=== PATIENT | female | born 1995 | race Caucasian/White ===

== ENCOUNTER 2018-11-13 19:02 | Emergency (ER) | payer OTHER, BC ==
--- NOTE | 2018-11-13 19:25 | EDM.PDOC ---
ED HPI GENERAL MEDICAL PROBLEM - General Chief Complaint: Laceration Stated Complaint: RIGHT THUMB LACERATION Time Seen by Provider: 11/13/18 19:23 Source of Information: Reports: Patient, Family (spouse) History Limitations: Reports: No Limitations - History of Present Illness INITIAL COMMENTS - FREE TEXT/NARRATIVE: 23-year-old female presents to the ED with a superficial laceration to the volar aspect of her right thumb. This occurred at home. When her 's duty knife. He uses just open bags of foreign material which could contain methamphetamines, cocaine etc. Therefore concerned about potential emanation of the wound with foreign substance. However the wound is very superficial. Not actively bleeding at present.She is 37 weeks gestation. Tetanus diphtheria and pertussis toxoid is been recently updated. 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 (see below) (None.) - Related Data Allergies Allergy/AdvReac Type Severity Reaction Status Date / Time No Known Allergies Allergy Verified 11/13/18 19:19 Home Meds: Home Meds Pnv No.122/Iron/Folic Acid [ Multi Tablet] 1 tab PO DAILY 11/13/18 [ History] Past Medical History - Past Surgical History HEENT Surgical History: Reports: Tonsillectomy Social & Family History - Tobacco Use Smoking Status *Q: Never Smoker - Caffeine Use Caffeine Use: Reports: None - Recreational Drug Use Recreational Drug Use: No - Living Situation & Occupation Living situation: Reports: Occupation: Employed ED ROS GENERAL - Review of Systems Review Of Systems: See Below Constitutional: Reports: Fatigue. Denies: Fever, Chills, Malaise, Weakness HEENT: Reports: No Symptoms Respiratory: Reports: Shortness of Breath (due to late third term ) Cardiovascular: Reports: No Symptoms Endocrine: Reports: Fatigue GI/Abdominal: Reports: No Symptoms : Reports: No Symptoms Musculoskeletal: Reports: No Symptoms Skin: Reports: Other (laceration distal volar Rt thumb.) Neurological: Reports: No Symptoms Psychiatric: Reports: No Symptoms Hematologic/Lymphatic: Reports: No Symptoms Immunologic: Reports: No Symptoms ED EXAM, SKIN/RASH Exam: See Below General Appearance: Alert, WD/WN, No Apparent Distress Extremities: Other (Examination was limited to her right volar distal thumb. She has a 3 mm superficial laceration to the area. It is not actively bleeding. Due to concerns of being potentially contaminated with drugs. The wound was irrigated thoroughly under Water.) Neurological: Alert, Oriented, CN II-XII Intact, Normal Cognition Course - Vital Signs Last Recorded V/S: Last Vital Signs Temp 36.6 C 11/13/18 19:17 Pulse 117 H 11/13/18 19:17 Resp 16 11/13/18 19:17 BP 149/87 H 11/13/18 19:17 Pulse Ox 97 11/13/18 19:17 - Radiology Interpretation Free Text/Narrative:: 23-year-old female presents to the ED with a superficial laceration to the distal volar aspect of her right thumb. The wound is only about 3 mm in length. Is not actively bleeding. The wound occurred from her 's duty knife. 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 She uses the next open up for neurologic's and particularly bags of dental drugs such as methamphetamines and cocaine. Concern was therefore whether or not she could've got across contaminated with a foreign substance. However my examination the wound is very superficial unlikely that any's systemic symptoms can occ from the superficiality of the laceration. Plan wound irrigation. Then topical antibiotic and a Band-Aid. Departure - Departure Time of Disposition: 19:23 Disposition: Home, Self-Care 01 Condition: Fair Clinical Impression: Laceration of thumb Qualifiers: Encounter type: initial encounter Damage to nail status: without damage Foreign body presence: without foreign body Laterality: right Qualified Code(s) : S61.011A - Laceration without foreign body of right thumb without damage to nail, initial encounter - Discharge Information *PRESCRIPTION DRUG MONITORING PROGRAM REVIEWED*: Not Applicable *COPY OF PRESCRIPTION DRUG MONITORING REPORT IN PATIENT DEVANTE: Not Applicable Referrals: Yelitza Salter PA-C [Primary Care Provider] - Forms: ED Department Discharge Additional Instructions: Evaluation in the emergency him today in regards to a superficial laceration to be 3 mm in length volar aspect of the right thumb that occurred knife potentially contaminated with drugs. On examination her wound is very superficial and not actively bleeding and therefore it is very unlikely that anything would penetrated into the systemic system. Was irrigated and cleansed thoroughly. And now is topical antibiotic such as bacitracin or Polysporin once daily and a bandage to keep clean until it heals. Tetanus toxoid is up-to-date. Return to medical care IF signs of infection develop such as increased redness, swelling or obvious pus.
== END 2018-11-13 19:37 | disposition home or self-care (01) ==
LOC: JD.ED 19:02
DX: O9A.213 Injury, poisoning and certain other consequences of external causes complicating pregnancy, third trimester (principal); S61.011A Laceration without foreign body of right thumb without damage to nail, initial encounter; Z3A.37 37 weeks gestation of pregnancy; W26.0XXA Contact with knife, initial encounter
CPT/HCPCS: 99282; 99283

== ENCOUNTER 2018-11-17 16:57 | Inpatient (IN) | payer OTHER, BC ==
[2018-11-17] MEDS ORDERED: Ondansetron 4 MG/2 ML SDV IVPUSH PRN (17:24)
[2018-11-17] MEDS ORDERED: Sodium Chloride 0.9% 10 ML Syringe FLUSH PRN (17:24)
[2018-11-17] MEDS ORDERED: Nalbuphine 20 MG/ML 1 ML Syringe IVPUSH PRN (17:24)
[2018-11-17] MEDS ORDERED: Misoprostol 100 MCG Tab VAG PRN (17:24)
--- NOTE | 2018-11-17 17:29 | PCM.LDHP ---
L&D History of Present Illness - General Date of Service: 11/17/18 Admit Problem/Dx: Patient Status Order with Admit Dx/Problem 11/17/18 17:25 Patient Status [ADT] Routine Admission Diagnosis/Problem Admission Diagnosis/Problem Cholestasis Source of Information: Patient History Limitations: Reports: No Limitations - History of Present Illness Introduction:: Patient is a 23 y/o at 37 0/7 wks who presents for IOL for cholestasis of . Has had this complicated by findings of echogenic bowel on US (now resolved). Normal MFM evaluation including amniocentesis. Recently in had complained of solar pruritis. Bile acids drawn at 35 3/7 wks were < 1, but given persistence of patient symptoms were repeated at 36 3/7 wks and just today returned at 5. Given increase and symptoms diagnosis made. She is otherwise doing well. 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: Reports: Polycystic Ovaries : 1 Para: 0 LMP (Approximate): - Past Surgical History HEENT Surgical History: Reports: Tonsillectomy Dermatological Surgical History: Reports: Other (See Below) (cyst excision) Social & Family History - Tobacco Use Smoking Status *Q: Never Smoker - Caffeine Use Caffeine Use: Reports: None - Alcohol Use Alcohol Use History: No - Recreational Drug Use Recreational Drug Use: No - Living Situation & Occupation Living situation: Reports: Occupation: Employed H&P Review of Systems - Review of Systems: Review Of Systems: See Below General: Reports: No Symptoms Pulmonary: Reports: No Symptoms Cardiovascular: Reports: No Symptoms Gastrointestinal: Reports: No Symptoms Genitourinary: Reports: No Symptoms Musculoskeletal: Reports: No Symptoms Skin: Reports: Pruritis (solar and arms) Neurological: Reports: No Symptoms L&D Exam - Exam Exam: See Below - Vital Signs Weight: 108.125 kg - OB Specific Contraction Intensity: Irritability Movement: Active Heart Tones: Present Heart Tones per Min: 145 Heart Rate (FHR) Variability: Moderate (6-25 bmp) Presentation: Vertex - Hammond Score Hammond Score Cervix Position: Posterior Hammond Score Consistency: Medium Hammond Score Effacement: 0-30% Hammond Score Dilation: 1-2 cm Hammond Score Infant's Station: -3 Hammond Score Total: 2 - Exam General: Alert, Oriented, Cooperative Lungs: Clear to Auscultation, Normal Respiratory Effort Cardiovascular: Regular Rate, Regular Rhythm GI/Abdominal Exam: Soft, Non-Tender Genitourinary: Normal external exam Extremities: Normal Inspection Skin: Warm, Dry, Intact - Patient Data Result Diagrams: 11/17/18 17:45 11/17/18 17:45 - Problem List (1) 37 weeks gestation of SNOMED Code(s): 40773020 ICD Code: Z3A.37 - 37 WEEKS GESTATION OF Status: Acute Current Visit: Yes (2) Cholestasis during in third trimester SNOMED Code(s): 036074689 ICD Code: O26.613 - LIVER AND BILIARY TRACT DISORD IN , THIRD TRIMESTER; K83.1 - OBSTRUCTION OF BILE DUCT Status: Acute Current Visit: Yes Problem List Initiated/Reviewed/Updated: Yes Orders Last 24hrs: Active Orders 24 hr Category Date Time Status Patient Status [ADT] Routine ADT 11/17/18 17:25 Ordered Activity as Tolerated [RC] PFP Care 11/17/18 17:25 Ordered Communication Order [RC] ASDIRECTED Care 11/17/18 17:25 Ordered Communication Order [RC] ASDIRECTED Care 11/17/18 17:25 Ordered Communication Order [RC] ASDIRECTED Care 11/17/18 17:25 Ordered Communication Order [RC] ASDIRECTED Care 11/17/18 17:25 Ordered Heart Tones [RC] ASDIRECTED Care 11/17/18 17:25 Ordered Monitoring [RC] INTERMITTENT Care 11/17/18 17:25 Ordered Non Stress Test [RC] PER UNIT ROUTINE Care 11/17/18 17:25 Ordered Notify Provider [RC] ASDIRECTED Care 11/17/18 17:25 Ordered Notify Provider [RC] PRN Care 11/17/18 17:25 Ordered Peripheral IV Care [RC] . DIRECTED Care 11/17/18 17:25 Ordered Vaginal Exam [RC] ASDIRECTED Care 11/17/18 17:25 Ordered Vital Signs [RC] ASDIRECTED Care 11/17/18 17:25 Ordered Vital Signs [RC] PER UNIT ROUTINE Care 11/17/18 17:25 Ordered Regular Diet [DIET] Diet 11/17/18 Dinner Ordered CBC W/O DIFF,HEMOGRAM [HEME] Routine Lab 11/17/18 17:27 Ordered COMPREHENSIVE METABOLIC PN,CMP [CHEM] Routine Lab 11/17/18 17:24 Ordered RAPID PLASMA REAGIN,RPR [CHEM] Routine Lab 11/17/18 17:25 Ordered TYPE AND SCREEN [BBK] Routine Lab 11/17/18 17:24 Ordered Lactated Ringers [Ringers, Lactated] 1,000 ml Med 11/17/18 17:30 Ordered IV ASDIRECTED Nalbuphine [Nubain] Med 11/17/18 17:24 Ordered 10 mg IVPUSH Q2H PRN Ondansetron [Zofran] Med 11/17/18 17:24 Ordered 4 mg IVPUSH Q4H PRN Oxytocin/Lactated Ringers [Pitocin in LR 10 Units/1,000 Med 11/17/18 17:30 Ordered ML] 10 unit in 1,000 ml IV .CONTINUOUS Oxytocin/Lactated Ringers [Pitocin in LR 10 Units/1,000 Med 11/17/18 17:30 Ordered ML] 10 unit in 1,000 ml IV TITRATE Sodium Chloride 0.9% [Saline Flush] Med 11/17/18 17:24 Ordered 10 ml FLUSH ASDIRECTED PRN miSOPROStol [Cytotec] Med 11/17/18 17:24 Ordered 25 mcg VAG Q4H PRN Electronic Heart Tones Ext w TOCO [WOMSER] Oth 11/17/18 17:25 Ordered Routine Electronic Heart Tones Internal [WOMSER] Per Unit Oth 11/17/18 17:25 Ordered Routine Peripheral IV Insertion Adult [OM.PC] Routine Oth 11/17/18 17:25 Ordered Medication Orders Lactated Ringer's (Ringers, Lactated) 1,000 mls @ 40 mls/hr IV ASDIRECTED SHARMILA Oxytocin/Lactated Ringer's (Pitocin In Lr 10 Units/1,000 Ml) 10 unit in 1,000 mls @ 12 mls/hr IV TITRATE SHARMILA; Protocol Oxytocin/Lactated Ringer's (Pitocin In Lr 10 Units/1,000 Ml) 10 unit in 1,000 mls @ 500 mls/hr IV .CONTINUOUS SHARMILA Misoprostol (Cytotec) 25 mcg VAG Q4H PRN PRN Reason: cervical ripening Nalbuphine HCl (Nubain) 10 mg IVPUSH Q2H PRN PRN Reason: pain Ondansetron HCl (Zofran) 4 mg IVPUSH Q4H PRN PRN Reason: Nausea/Vomiting Sodium Chloride (Saline Flush) 10 ml FLUSH ASDIRECTED PRN PRN Reason: Keep Vein Open Assessment/Plan Comment:: 23 y/o at 37 0/7 wks who presents of IOL for cholestasis of * labs * Cytotec for IOL. Will try to add in Vick bulb when able. Pitocin/AROM when able * GBS negative, no need for antibiotics * Pain management per patient preference * Anticipate
[2018-11-17] MEDS ORDERED: Oxytocin/Lactated Ringers 10 UNIT/1,000 ML BAG IV SCH ×2 (17:30)
[2018-11-17] MEDS ORDERED: Misoprostol 25 MCG (1/4 of 100 MCG) Tab ONE (17:48)
[2018-11-17] MEDS: Misoprostol 25 MCG (1/4 of 100 MCG) Tab VAG PRN (22:16)
[2018-11-18] MEDS: Misoprostol 25 MCG (1/4 of 100 MCG) Tab VAG PRN (02:12)
--- NOTE | 2018-11-18 06:59 | PCM.PNLD ---
Labor Progress Note - VS & Meds Vital Signs: Last Vital Signs Temp 36.3 C 11/17/18 17:25 Pulse 126 H 11/17/18 17:25 Resp 18 11/17/18 17:25 BP 134/82 11/17/18 17:25 Pulse Ox Active Medications: Current Medications Lactated Ringer's (Ringers, Lactated) 1,000 mls @ 40 mls/hr IV ASDIRECTED SHARMILA Oxytocin/Lactated Ringer's (Pitocin In Lr 10 Units/1,000 Ml) 10 unit in 1,000 mls @ 12 mls/hr IV TITRATE SHARMILA; Protocol Oxytocin/Lactated Ringer's (Pitocin In Lr 10 Units/1,000 Ml) 10 unit in 1,000 mls @ 500 mls/hr IV .CONTINUOUS SHARMILA Nalbuphine HCl (Nubain) 10 mg IVPUSH Q2H PRN PRN Reason: pain Ondansetron HCl (Zofran) 4 mg IVPUSH Q4H PRN PRN Reason: Nausea/Vomiting Sodium Chloride (Saline Flush) 10 ml FLUSH ASDIRECTED PRN PRN Reason: Keep Vein Open Discontinued Medications Misoprostol (Cytotec) 25 mcg VAG Q4H PRN PRN Reason: cervical ripening Last Admin: 11/17/18 17:50 Dose: 25 mcg Misoprostol (Cytotec) Confirm Administered Dose 25 mcg .ROUTE .STK-MED ONE Stop: 11/17/18 17:49 Last Admin: 11/18/18 00:59 Dose: Not Given Misoprostol (Cytotec) 25 mcg VAG Q4H PRN PRN Reason: cervical ripening Last Admin: 11/18/18 02:12 Dose: 25 mcg - Uterine Contractions Uterine Monitoring Mode: External Strang Contraction Intensity: Mild Uterine Resting Tone: Soft - Monitoring Monitor Mode: External Ultrasound Heart Rate (FHR) Baseline: 135 Heart Rate (FHR) Variability: Moderate (6-25 bmp) Accelerations: Present, 15x15 Decelerations: None Strip Review: Category I - Vaginal Exam Dilation (cm): 0.5-1 Effacement (Percent): 25 Station: -2 Cervical Position: Midposition - Labor Progress (Free Text) Labor Progress: Patient s/p 3 doses of cytotec overnight. Feeling some mild cramping with this. Vick bulb placed. Will start pitocin at this time.
[2018-11-18] MEDS: Lactated Ringers 1,000 ML IV SCH ×6 (07:32→22:00)
[2018-11-18] MEDS ORDERED: ePHEDrine 50 MG/ML SDV IVPUSH PRN (13:29)
[2018-11-18] MEDS ORDERED: diphenhydrAMINE 50 MG/ML SDV IVPUSH PRN (13:29)
[2018-11-18] MEDS ORDERED: fentaNYL 100 MCG/2 ML SDV EPIDUR PRN (13:29)
--- NOTE | 2018-11-18 13:33 | PCM.PREANE ---
Preanesthetic Assessment - Procedure Proposed Procedure: asa - Anesthesia/Transfusion/Family Hx Anesthesia History: Prior Anesthesia Without Reaction Family History of Anesthesia Reaction: No Transfusion History: No Prior Transfusion(s) - Review of Systems General: No Symptoms Pulmonary: No Symptoms Cardiovascular: No Symptoms Gastrointestinal: No Symptoms Neurological: No Symptoms Other: Reports: None - Physical Assessment Respiratory Rate: 18 Vital Signs: Last Vital Signs Temp 97.4 F 11/17/18 17:25 Pulse 126 H 11/17/18 17:25 Resp 18 11/17/18 17:25 BP 134/82 11/17/18 17:25 Pulse Ox Height: 5 ft 7 in Weight: 108.125 kg ASA Class: 2 Mental Status: Alert & Oriented x3 Airway Class: Mallampati = 1 Dentition: Reports: Normal Dentition Thyro-Mental Finger Breadths: 3 Mouth Opening Finger Breadths: 3 ROM/Head Extension: Full Lungs: Clear to Auscultation, Normal Respiratory Effort Cardiovascular: Regular Rate, Regular Rhythm - Lab Values: Laboratory Last Values WBC 15.64 K/mm3 (3.98-10.04) H 11/17/18 17:45 RBC 4.19 M/mm3 (3.98-5.22) 11/17/18 17:45 Hgb 12.2 gm/L (11.2-15.7) 11/17/18 17:45 Hct 37.3 % (34.1-44.9) 11/17/18 17:45 MCV 89.0 fl (79.4-94.8) 11/17/18 17:45 MCH 29.1 pg (25.6-32.2) 11/17/18 17:45 MCHC 32.7 g/dl (32.2-35.5) 11/17/18 17:45 RDW Std Deviation 44.2 fL (36.4-46.3) 11/17/18 17:45 Plt Count 224 K/mm3 (182-369) 11/17/18 17:45 MPV 10.7 fl (9.4-12.3) 11/17/18 17:45 Sodium 139 mEq/L (136-145) 11/17/18 17:45 Potassium 3.4 mEq/L (3.5-5.1) L 11/17/18 17:45 Chloride 105 mEq/L (98-107) 11/17/18 17:45 Carbon Dioxide 20 mEq/L (21-32) L 11/17/18 17:45 Anion Gap 17.4 (5-15) H 11/17/18 17:45 BUN 8 mg/dL (7-18) 11/17/18 17:45 Creatinine 0.7 mg/dL (0.55-1.02) 11/17/18 17:45 Est Cr Clr Drug Dosing 119.47 mL/min 11/17/18 17:45 Estimated GFR (MDRD) > 60 mL/min (>60) 11/17/18 17:45 BUN/Creatinine Ratio 11.4 (14-18) L 11/17/18 17:45 Glucose 151 mg/dL (74-106) H 11/17/18 17:45 Calcium 9.2 mg/dL (8.5-10.1) 11/17/18 17:45 Total Bilirubin 0.3 mg/dL (0.2-1.0) 11/17/18 17:45 AST 20 U/L (15-37) 11/17/18 17:45 ALT 13 U/L (14-59) L 11/17/18 17:45 Alkaline Phosphatase 137 U/L (46-116) H 11/17/18 17:45 Total Protein 6.2 g/dl (6.4-8.2) L 11/17/18 17:45 Albumin 2.6 g/dl (3.4-5.0) L 11/17/18 17:45 Globulin 3.6 gm/dL 11/17/18 17:45 Albumin/Globulin Ratio 0.7 (1-2) L 11/17/18 17:45 RPR Non-reactive (NONREACTIVE) 11/17/18 17:25 Blood Type A POSITIVE 11/17/18 17:45 Gel Antibody Screen Negative 11/17/18 17:45 - Allergies Allergies/Adverse Reactions: Allergies Allergy/AdvReac Type Severity Reaction Status Date / Time No Known Allergies Allergy Verified 11/13/18 19:19 - Acknowledgements Anesthesia Type Planned: Epidural Pt an Appropriate Candidate for the Planned Anesthesia: Yes Alternatives and Risks of Anesthesia Discussed w Pt/Guardian: Yes Pt/Guardian Understands and Agrees with Anesthesia Plan: Yes PreAnesthesia Questionnaire Cardiovascular History: Reports: None Respiratory History: Reports: None Gastrointestinal History: Reports: Other (See Below) Other Gastrointestinal History: cholestasis 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: Polycystic Ovaries : 1 (37 weeks) Para: 0 Oncologic (Cancer) History: Reports: None - Past Surgical History HEENT Surgical History: Reports: Tonsillectomy Dermatological Surgical History: Reports: Other (See Below) (cyst excision) - SUBSTANCE USE Smoking Status *Q: Never Smoker Tobacco Use Within Last Twelve Months: No Second Hand Smoke Exposure: No Days Per Week of Alcohol Use: 0 Recreational Drug Use History: No - HOME MEDS Home Medications: Home Meds Pnv No.122/Iron/Folic Acid [ Multi Tablet] 1 tab PO DAILY 11/13/18 [ History] - CURRENT (IN HOUSE) MEDS Current Meds: Current Medications Diphenhydramine HCl (Benadryl) 25 mg IVPUSH Q6H PRN PRN Reason: pruritis Ephedrine Sulfate (Ephedrine Sulfate) 5 mg IVPUSH ASDIRECTED PRN PRN Reason: Hypotension Fentanyl (Sublimaze) 100 mcg EPIDUR Q3H PRN PRN Reason: Pain Fentanyl/Bupivacaine HCl (Fentanyl/Bupivacaine/Ns 2 Mcg-0.125% 100 Ml) 100 ml EPIDUR ASDIRECTED SHARMILA Lactated Ringer's (Ringers, Lactated) 1,000 mls @ 40 mls/hr IV ASDIRECTED SHARMILA Last Admin: 11/18/18 07:32 Dose: 40 mls/hr Oxytocin/Lactated Ringer's (Pitocin In Lr 10 Units/1,000 Ml) 10 unit in 1,000 mls @ 12 mls/hr IV TITRATE SHARMILA; Protocol Last Titration: 11/18/18 10:20 Dose: 12 munits/min, 72 mls/hr Oxytocin/Lactated Ringer's (Pitocin In Lr 10 Units/1,000 Ml) 10 unit in 1,000 mls @ 500 mls/hr IV .CONTINUOUS SHARMILA Nalbuphine HCl (Nubain) 10 mg IVPUSH Q2H PRN PRN Reason: pain Ondansetron HCl (Zofran) 4 mg IVPUSH Q4H PRN PRN Reason: Nausea/Vomiting Sodium Chloride (Saline Flush) 10 ml FLUSH ASDIRECTED PRN PRN Reason: Keep Vein Open Discontinued Medications Misoprostol (Cytotec) 25 mcg VAG Q4H PRN PRN Reason: cervical ripening Last Admin: 11/17/18 17:50 Dose: 25 mcg Misoprostol (Cytotec) Confirm Administered Dose 25 mcg .ROUTE .[facility] ONE Stop: 11/17/18 17:49 Last Admin: 11/18/18 00:59 Dose: Not Given Misoprostol (Cytotec) 25 mcg VAG Q4H PRN PRN Reason: cervical ripening Last Admin: 11/18/18 02:12 Dose: 25 mcg
[2018-11-18] MEDS ORDERED: fentaNYL 100 MCG/2 ML SDV ONE (13:34)
[2018-11-18] MEDS: fentaNYL/Bupivacaine-NS 2 MCG/ML-0.125%/PF 100 ML Bag EP SCH ×2 (13:37→22:08)
--- NOTE | 2018-11-18 17:39 | PCM.PNLD ---
Labor Progress Note - VS & Meds Vital Signs: Last Vital Signs Temp 36.3 C 11/17/18 17:25 Pulse 126 H 11/17/18 17:25 Resp 18 11/18/18 13:32 BP 134/82 11/17/18 17:25 Pulse Ox Active Medications: Current Medications Diphenhydramine HCl (Benadryl) 25 mg IVPUSH Q6H PRN PRN Reason: pruritis Ephedrine Sulfate (Ephedrine Sulfate) 5 mg IVPUSH ASDIRECTED PRN PRN Reason: Hypotension Fentanyl (Sublimaze) 100 mcg EPIDUR Q3H PRN PRN Reason: Pain Last Admin: 11/18/18 13:36 Dose: 100 mcg Fentanyl/Bupivacaine HCl (Yufwtprj-Qmumc-Wz 2 Mcg/Ml-0.125%) 100 ml EP ASDIRECTED SHARMILA Last Admin: 11/18/18 13:37 Dose: 100 ml Lactated Ringer's (Ringers, Lactated) 1,000 mls @ 40 mls/hr IV ASDIRECTED SHARMILA Last Admin: 11/18/18 15:12 Dose: 40 mls/hr Oxytocin/Lactated Ringer's (Pitocin In Lr 10 Units/1,000 Ml) 10 unit in 1,000 mls @ 12 mls/hr IV TITRATE SHARMILA; Protocol Last Titration: 11/18/18 17:31 Dose: 20 munits/min, 120 mls/hr Oxytocin/Lactated Ringer's (Pitocin In Lr 10 Units/1,000 Ml) 10 unit in 1,000 mls @ 500 mls/hr IV .CONTINUOUS SHARMILA Nalbuphine HCl (Nubain) 10 mg IVPUSH Q2H PRN PRN Reason: pain Ondansetron HCl (Zofran) 4 mg IVPUSH Q4H PRN PRN Reason: Nausea/Vomiting Sodium Chloride (Saline Flush) 10 ml FLUSH ASDIRECTED PRN PRN Reason: Keep Vein Open Discontinued Medications Fentanyl (Sublimaze) Confirm Administered Dose 100 mcg .ROUTE .STK-MED ONE Stop: 11/18/18 13:35 Misoprostol (Cytotec) 25 mcg VAG Q4H PRN PRN Reason: cervical ripening Last Admin: 11/17/18 17:50 Dose: 25 mcg Misoprostol (Cytotec) Confirm Administered Dose 25 mcg .ROUTE .STK-MED ONE Stop: 11/17/18 17:49 Last Admin: 11/18/18 00:59 Dose: Not Given Misoprostol (Cytotec) 25 mcg VAG Q4H PRN PRN Reason: cervical ripening Last Admin: 11/18/18 02:12 Dose: 25 mcg - Uterine Contractions Uterine Monitoring Mode: External Paragon Contraction Intensity: Moderate Uterine Resting Tone: Soft - Monitoring Monitor Mode: External Ultrasound Heart Rate (FHR) Baseline: 140 Heart Rate (FHR) Variability: Moderate (6-25 bmp) Accelerations: Present, 15x15 Decelerations: Late (rare), Variable, Intermittent (<50% x 20 min) Strip Review: Category II - Vaginal Exam Dilation (cm): 2-3 Effacement (Percent): 75 Station: -2 Cervical Position: Midposition - Labor Progress (Free Text) Labor Progress: Patient with SROM around 1045. Became uncomfortable after that and had epidural placed. Doing well that way currently. Last checked at 1500 and was similar SVE to now. Will continue to increase pitocin per protocol
[2018-11-19] MEDS ORDERED: Acetaminophen 325 MG Tab PO STA (01:07)
[2018-11-19] MEDS: Lactated Ringers 1,000 ML IV SCH (01:11)
[2018-11-19] MEDS: Ampicillin 2 GM in Sodium Chloride 0.9% 100 ML IV SCH ×4 (01:24→20:34)
--- NOTE | 2018-11-19 01:25 | PCM.SN ---
- Free Text/Narrative Note: 0100 Called by nursing staff [id number] that around 0020 patient had a shift up in baseline to 165 and at times 170. Tracing reviewed and does show a gradual increase in baseline throughout the later part of the day/PM. Still with moderate variability and accelerations. Rare variable decelerations. Maternal heart rate around 110-120. Highest temperature is 99.9. Exam shows patient to have made good change though to 7-8 cm from 4 cm 2 hours ago. Reviewed with patient and family that findings are likely indicative of underlying chorioamnionitis although no fever quite yet. This would make sense given how early in labor process she had SROM. Recommend treating for chorioamnionitis and they agree. Tylenol given. Ampicillin and Gentamicin to be started. Will recheck in about 1 hour. Jyoti Sifuentes MD
[2018-11-19] MEDS ORDERED: Lidocaine HCl/EPINEPHrine 5 ML IJ ONE (02:00)
[2018-11-19] MEDS ORDERED: Bupivacaine 0.25% 10 ML SDV ONE (02:00)
--- NOTE | 2018-11-19 02:13 | PCM.SN ---
- Free Text/Narrative Note: 021 FHR had gone back into a normal baseline of 160 while on hands and needs and with good variability. Patient checked again and only about 7 cm. Baseline did shift back up to 170's now that supine again. Patient overall concerned with chorioamnionitis and the interventions we are needing to do to manage heart rate. Overall prefers to move to . Feel this is not unreasonable although did review risks. She expressed understanding. Team to be notified. Jyoti Sifuentes MD
[2018-11-19] MEDS ORDERED: Clindamycin Phosphate 900 MG in Sodium Chloride 0.9% 100 ML IV ONE (02:14)
--- NOTE | 2018-11-19 02:14 | PCM.OPNOTE ---
- General Post-Op/Procedure Note Date of Surgery/Procedure: 11/19/18 Operative Procedure(s): Primary low transverse Findings: Baby Boy in a vertex presentation. Weight of 8 lbs 3 oz and APGARS of 7 & 8. Normal appearance of the uterus, fallopian tubes, and ovaries. Pre Op Diagnosis: 37 weeks gestation. Cholestasis of . Chorioamnionitis Post-Op Diagnosis: Same Anesthesia Technique: Epidural Primary Surgeon: Jyoti Sifuentes Secondary Surgeon: Sabrina Marrufo Anesthesia Provider: Ashley Borja Reason Shoemaking Finisher Was Necessary: BMI of patient, speed/safety of procedure Pathology: Cord blood collected. Placenta sent to pathology Fluid Replacement, Intraop: 1,000 Output, Urine Amount: 125 EBL in mLs: 1,200 Complications: None Condition: Good Free Text/Narrative:: The risks, benefits, indications, potential complications, and alternatives were explained to the patient and informed consent obtained. After induction of anesthesia, the patient was placed in a supine position and then draped and prepped in the usual sterile manner. A Pfannenstiel incision was made and carried down through the subcutaneous tissue to the fascia. Fascial incision was made and extended transversely. The fascia was from the underlying rectus tissue superiorly and inferiorly. The peritoneum was identified and entered. Peritoneal incision was extended longitudinally. The utero-vesical peritoneal reflection was incised transversely and the bladder flap was bluntly freed from the lower uterine segment. A low transverse uterine incision was made sharply with a scalpel and extended bluntly in a cephalocaudad direction. A baby boy was delivered from a vertex presentation with APGARS as above. There was some difficulty getting the head through the hysterotomy so vacuum cup placed once, but did disengage. Was not needed to be replaced as delivery occurred shortly there after. After the umbilical cord was clamped and cut a segment was obtained for cord gases. Cord blood was obtained for evaluation. The placenta was removed intact and appeared normal. The uterus was exteriorized and cleared of clots. The uterine outline, tubes and ovaries appeared normal. The uterine incision was closed with running locked sutures of 0 Vicryl. Hemostasis was obtained with a second imbricating layer of 0 vicryl. The uterus was then placed back into the abdomen. The infracolic gutters were cleared of blood clots. The fascia was then reapproximated with running sutures of 0 Vicryl. The sucutaneous tissue was irrigated with sterile warm normal saline, hemostasis obtained with cautery. This layer was also closed with a running 0 vicryl suture. The skin was reapproximated with running Subcuticular 4-0 monocryl sutures. Instrument, sponge, and needle counts were correct prior the abdominal closure and at the conclusion of the case.
[2018-11-19] MEDS ORDERED: ceFAZolin 1 GM Vial ONE (02:29)
[2018-11-19] MEDS ORDERED: Lactated Ringers 2,000 ML ONE (02:29)
[2018-11-19] MEDS ORDERED: Ketorolac 30 MG/ML SDV ONE (02:29)
[2018-11-19] MEDS ORDERED: Ondansetron 4 MG/2 ML SDV ONE (02:29)
[2018-11-19] MEDS ORDERED: Oxytocin 10 Units/1 ML SDV ONE ×2 (02:29)
[2018-11-19] MEDS ORDERED: Morphine PF 1 MG/ML Amp ONE (02:29)
[2018-11-19] MEDS ORDERED: Lidocaine 2% with EPINEPHrine 1:200,000 20 ML SDV ONE (02:30)
[2018-11-19] MEDS ORDERED: Sodium Bicarbonate 8.4% 50 MEQ/50 ML SDV ONE (02:31)
[2018-11-19] MEDS ORDERED: Citric Acid/Sodium Citrate Solution 30 ML Cup ONE (02:37)
[2018-11-19] MEDS ORDERED: Metoclopramide 10 MG/2 ML SDV ONE (02:37)
[2018-11-19] MEDS ORDERED: fentaNYL 100 MCG/2 ML SDV IVPUSH PRN (02:58)
[2018-11-19] MEDS ORDERED: Ondansetron 4 MG/2 ML SDV IVPUSH PRN (02:58)
[2018-11-19] MEDS ORDERED: diphenhydrAMINE 50 MG/ML SDV IVPUSH PRN ×2 (02:58→04:53)
[2018-11-19] MEDS ORDERED: Phenylephrine/Normal Saline 100 MCG/ML 10 ML Syringe ONE (03:25)
[2018-11-19] MEDS ORDERED: Methylergonovine 0.2 MG/1 ML Amp ONE (03:27)
--- NOTE | 2018-11-19 04:01 | PCM.POSTAN ---
POST ANESTHESIA ASSESSMENT - MENTAL STATUS Mental Status: Alert, Oriented - VITAL SIGNS Pulse Rate: 108 SaO2: 95 Resp Rate: 17 Blood Pressure: 122/74 Temperature: 98.5 F - RESPIRATORY Respiratory Status: Respiratory Rate WNL, Airway Patent, O2 Saturation Stable, Supplemental Oxygen - CARDIOVASCULAR CV Status: Pulse Rate WNL, Blood Pressure Stable - GASTROINTESTINAL GI Status: No Symptoms - PAIN Pain Score: 0 - POST OP HYDRATION Hydration Status: Adequate & Stable
[2018-11-19] MEDS ORDERED: Naloxone 0.4 MG/ML SDV IVPUSH PRN (04:53)
[2018-11-19] MEDS ORDERED: Dextrose 5%-Lactated Ringers 1,000 ML IV SCH (04:53)
[2018-11-19] MEDS ORDERED: Lanolin 100% Cream 7 GM Tube TOP PRN (04:53)
--- NOTE | 2018-11-19 07:45 | PCM48HPAN ---
Post Anesthesia Note - EVALUATION WITHIN 48HRS OF ANESTHETIC Vital Signs in Normal Range: Yes Patient Participated in Evaluation: Yes Respiratory Function Stable: Yes Airway Patent: Yes Cardiovascular Function Stable: Yes Hydration Status Stable: Yes Pain Control Satisfactory: Yes Nausea and Vomiting Control Satisfactory: Yes Mental Status Recovered: Yes
[2018-11-19] MEDS: Ketorolac 30 MG/ML SDV IVPUSH SCH ×3 (10:03→22:17)
[2018-11-19] MEDS: Clindamycin Phosphate 900 MG in Sodium Chloride 0.9% 100 ML IV SCH ×2 (11:08→19:00)
[2018-11-20] MEDS: Ampicillin 2 GM in Sodium Chloride 0.9% 100 ML IV SCH (02:31)
[2018-11-20] MEDS: Clindamycin Phosphate 900 MG in Sodium Chloride 0.9% 100 ML IV SCH (03:31)
[2018-11-20] MEDS: Ibuprofen 600 MG Tab PO PRN ×3 (04:36→20:42)
--- NOTE | 2018-11-20 06:47 | PCM.PNPP ---
- General Info Date of Service: 11/20/18 Functional Status: Reports: Pain Controlled, Tolerating Diet, Ambulating, Urinating - Review of Systems General: Reports: No Symptoms Pulmonary: Reports: No Symptoms Cardiovascular: Reports: No Symptoms Gastrointestinal: Reports: Abdominal Pain (managed with medications ) Genitourinary: Reports: No Symptoms Musculoskeletal: Reports: No Symptoms Neurological: Reports: No Symptoms - Patient Data Vital Signs - Most Recent: Last Vital Signs Temp 36.6 C 11/20/18 04:10 Pulse 103 H 11/20/18 04:10 Resp 14 11/20/18 04:10 BP 113/49 L 11/20/18 04:10 Pulse Ox 98 11/20/18 04:10 Weight - Most Recent: 108.125 kg I&O - Last 24 Hours: Intake & Output 11/19/18 11/19/18 11/20/18 14:59 22:59 06:59 Intake Total 1900 2200 500 Output Total 825 1750 1000 Balance 1075 450 -500 Lab Results - Last 24 Hours: Laboratory Results - last 24 hr 11/20/18 Range/Units 06:10 WBC 16.20 H (3.98-10.04) K/mm3 RBC 3.00 L (3.98-5.22) M/mm3 Hgb 8.7 L (11.2-15.7) gm/L Hct 27.8 L (34.1-44.9) % MCV 92.7 (79.4-94.8) fl MCH 29.0 (25.6-32.2) pg MCHC 31.3 L (32.2-35.5) g/dl RDW Std Deviation 46.0 (36.4-46.3) fL Plt Count 198 (182-369) K/mm3 MPV 10.5 (9.4-12.3) fl Med Orders - Current: Current Medications Diphenhydramine HCl (Benadryl) 25 mg IVPUSH Q6H PRN PRN Reason: Itching or Nausea Last Admin: 11/19/18 16:47 Dose: 25 mg Docusate Sodium (Colace) 100 mg PO Q12H PRN PRN Reason: Constipation Emollient Ointment (Lansinoh Hpa) 0 gm TOP ASDIRECTED PRN PRN Reason: Sore Nipples Ibuprofen (Motrin) 600 mg PO Q6H PRN PRN Reason: mild pain or fever Last Admin: 11/20/18 04:36 Dose: 600 mg Naloxone HCl (Narcan) 0.1 mg IVPUSH SEECOMMENT PRN PRN Reason: Respiratory Depression Oxycodone/Acetaminophen (Percocet 325-5 Mg) 2 tab PO Q4H PRN PRN Reason: Pain (moderate 4-6) Discontinued Medications Acetaminophen (Tylenol) 975 mg PO NOW STA Stop: 11/19/18 01:08 Last Admin: 11/19/18 01:10 Dose: 975 mg Cefazolin Sodium (Ancef) Confirm Administered Dose 2 gm .ROUTE .[employer]-MED ONE Stop: 11/19/18 02:30 Citric Acid/Sodium Citrate (Bicitra Solution) Confirm Administered Dose 30 ml .ROUTE .[employer]-[facility] ONE Stop: 11/19/18 02:38 Last Admin: 11/19/18 02:40 Dose: 30 ml Diphenhydramine HCl (Benadryl) 25 mg IVPUSH Q6H PRN PRN Reason: pruritis Diphenhydramine HCl (Benadryl) 25 mg IVPUSH Q6H PRN PRN Reason: pruritis Ephedrine Sulfate (Ephedrine Sulfate) 5 mg IVPUSH ASDIRECTED PRN PRN Reason: Hypotension Fentanyl (Sublimaze) 100 mcg EPIDUR Q3H PRN PRN Reason: Pain Last Admin: 11/18/18 13:36 Dose: 100 mcg Fentanyl (Sublimaze) Confirm Administered Dose 100 mcg .ROUTE .[employer]-MED ONE Stop: 11/18/18 13:35 Fentanyl (Sublimaze) 50 mcg IVPUSH Q5M PRN PRN Reason: Pain Fentanyl/Bupivacaine HCl (Sqynncjr-Irtbi-Jd 2 Mcg/Ml-0.125%) 100 ml EP ASDIRECTED SHARMILA Last Admin: 11/18/18 22:08 Dose: 100 ml Lactated Ringer's (Ringers, Lactated) 1,000 mls @ 40 mls/hr IV ASDIRECTED [facility]ARMIL[facility] Last Admin: 11/19/18 01:11 Dose: 40 mls/hr Oxytocin/Lactated Ringer's (Pitocin In Lr 10 Units/1,000 Ml) 10 unit in 1,000 mls @ 12 mls/hr IV TITRATE SHARMILA; Protocol Last Titration: 11/18/18 17:31 Dose: 20 munits/min, 120 mls/hr Oxytocin/Lactated Ringer's (Pitocin In Lr 10 Units/1,000 Ml) 10 unit in 1,000 mls @ 500 mls/hr IV .CONTINUOUS SHARMILA Oxytocin 20 unit/ Lactated (Ringer's) 1,002 mls @ 66.13 mls/hr IV TITRATE SHARMILA; Protocol Last Titration: 11/18/18 22:31 Dose: 22 munits/min, 66.13 mls/hr Ampicillin Sodium 2 gm/ Sodium (Chloride) 100 mls @ 200 mls/hr IV Q6H [facility] Last Admin: 11/20/18 02:31 Dose: 200 mls/hr Gentamicin Sulfate 540 mg/ (Sodium Chloride) 113.5 mls @ 200 mls/hr IV ONETIME ONE Stop: 11/19/18 01:39 Last Admin: 11/19/18 02:28 Dose: 200 mls/hr Clindamycin Phosphate 900 mg/ (Sodium Chloride) 106 mls @ 100 mls/hr IV ONETIME ONE Stop: 11/19/18 03:17 Lactated Ringer's (Ringers, Lactated) Confirm Administered Dose 2,000 mls @ as directed .ROUTE .STK-MED ONE Stop: 11/19/18 02:30 Clindamycin Phosphate 900 mg/ (Sodium Chloride) 106 mls @ 100 mls/hr IV Q8H [facility] Last Admin: 11/20/18 03:31 Dose: 100 mls/hr Dextrose/Lactated Ringer's (Dextrose 5%-Lactated Ringers) 1,000 mls @ 125 mls/ hr IV ASDIRECTED [facility] Stop: 11/19/18 12:52 Last Admin: 11/19/18 10:11 Dose: 125 mls/hr Ketorolac Tromethamine (Toradol) Confirm Administered Dose 30 mg .ROUTE .STK- MED ONE Stop: 11/19/18 02:30 Ketorolac Tromethamine (Toradol) 30 mg IVPUSH Q6H [facility] Stop: 11/19/18 22:01 Last Admin: 11/19/18 22:17 Dose: 30 mg Lidocaine/Epinephrine (Xylocaine-Mpf 2%-Epi 1:200,000) Confirm Administered Dose 20 ml .ROUTE .STK-MED ONE Stop: 11/19/18 02:31 Methylergonovine Maleate (Methergine) Confirm Administered Dose 0.2 mg .ROUTE .STK-MED ONE Stop: 11/19/18 03:28 Last Admin: 11/19/18 03:30 Dose: 0.2 mg Metoclopramide HCl (Reglan) Confirm Administered Dose 10 mg .ROUTE .ST-MED ONE Stop: 11/19/18 02:38 Last Admin: 11/19/18 02:40 Dose: 10 mg Misoprostol (Cytotec) 25 mcg VAG Q4H PRN PRN Reason: cervical ripening Last Admin: 11/17/18 17:50 Dose: 25 mcg Misoprostol (Cytotec) Confirm Administered Dose 25 mcg .ROUTE .ST-MED ONE Stop: 11/17/18 17:49 Last Admin: 11/18/18 00:59 Dose: Not Given Misoprostol (Cytotec) 25 mcg VAG Q4H PRN PRN Reason: cervical ripening Last Admin: 11/18/18 02:12 Dose: 25 mcg Morphine Sulfate (Duramorph Pf) Confirm Administered Dose 1 mg .ROUTE .ST-MED ONE Stop: 11/19/18 02:30 Nalbuphine HCl (Nubain) 10 mg IVPUSH Q2H PRN PRN Reason: pain Ondansetron HCl (Zofran) 4 mg IVPUSH Q4H PRN PRN Reason: Nausea/Vomiting Last Admin: 11/19/18 00:54 Dose: 4 mg Ondansetron HCl (Zofran) Confirm Administered Dose 4 mg .ROUTE .ST-MED ONE Stop: 11/19/18 02:30 Ondansetron HCl (Zofran) 4 mg IVPUSH ONETIME PRN PRN Reason: Nausea/Vomiting Oxytocin (Pitocin) Confirm Administered Dose 10 unit .ROUTE .STK-MED ONE Stop: 11/19/18 02:30 Oxytocin (Pitocin) Confirm Administered Dose 10 unit .ROUTE .STK-MED ONE Stop: 11/19/18 02:30 Phenylephrine HCl (Phenylephrine In Ns 100 Mcg/Ml) Confirm Administered Dose 1 mg .ROUTE .STK-MED ONE Stop: 11/19/18 03:26 Sodium Bicarbonate (Sodium Bicarbonate 8.4%) Confirm Administered Dose 50 meq .ROUTE .STK-MED ONE Stop: 11/19/18 02:32 Sodium Chloride (Saline Flush) 10 ml FLUSH ASDIRECTED PRN PRN Reason: Keep Vein Open - Infant Interaction Infant Disposition, : [place] to Nursery Infant Feeding: Attempted ; Nursed Fair/Poor Support Person: - Recovery Exam Fundal Tone: Firm Fundal Level: At Umbilicus Fundal Placement: Midline Lochia Amount: Scant Lochia Color: Rubra/Red Perineum Description: Intact, Minimal Bruising/Swelling Episiotomy/Laceration: Approximated Bladder Status: Nonpalpable, Voiding Urinary Elimination: Voided - Exam General: Alert, Oriented, Cooperative Lungs: Clear to Auscultation, Normal Respiratory Effort Cardiovascular: Regular Rhythm, Tachycardia GI/Abdominal Exam: Soft, Tender (appropriate post op ) Extremities: Normal Inspection, Pedal Edema Skin: Warm, Dry, Intact Wound/Incisions: Healing Well, No Drainage - Problem List & Annotations (1) 37 weeks gestation of SNOMED Code(s): 45147348 Code(s): Z3A.37 - 37 WEEKS GESTATION OF Status: Acute Current Visit: Yes (2) Cholestasis during in third trimester SNOMED Code(s): 520637497 Code(s): O26.613 - LIVER AND BILIARY TRACT DISORD IN , THIRD TRIMESTER; K83.1 - OBSTRUCTION OF BILE DUCT Status: Acute Current Visit: Yes (3) Chorioamnionitis SNOMED Code(s): 26981443 Code(s): O41.1290 - CHORIOAMNIONITIS, UNSP TRIMESTER, NOT APPLICABLE OR UNSP Status: Acute Current Visit: Yes Qualifiers: Fetus number: single or unspecified fetus Trimester: third trimester Qualified Code(s): O41.1230 - Chorioamnionitis, third trimester, not applicable or unspecified (4) Failure to progress in first stage of labor SNOMED Code(s): 905039261 Code(s): PET4058 - Status: Acute Current Visit: Yes (5) S/P primary low transverse SNOMED Code(s): 273404302, 94256635, 199564405, 398886179, 706145674 Code(s): Z98.891 - HISTORY OF UTERINE SCAR FROM PREVIOUS SURGERY Status: Acute Current Visit: Yes - Problem List Review Problem List Initiated/Reviewed/Updated: Yes - My Orders Last 24 Hours: My Active Orders 11/19/18 Breakfast Regular Diet [DIET] 11/20/18 04:00 Ibuprofen [Motrin] 600 mg PO Q6H PRN - Assessment Assessment:: 25 t/o G1 now P1001 POD#1 from PLTCS - Plan Plan:: S/p PTLCS * Has had 24 hours of antibiotics for chorioamnionitis. Discontinued this AM * Routine cares * Encourage breast feeding * Discharge in 2 days
[2018-11-20] MEDS: Docusate Sodium 100 MG Cap PO PRN ×2 (13:27→20:41)
[2018-11-20] MEDS: Acetaminophen/oxyCODONE 325-5 MG Tab PO PRN ×2 (16:27→22:09)
--- NOTE | 2018-11-21 02:01 | PCM.PNPP ---
- General Info Date of Service: 11/21/18 Functional Status: Reports: Pain Controlled, Tolerating Diet, Ambulating, Urinating - Review of Systems General: Reports: No Symptoms Pulmonary: Reports: No Symptoms Cardiovascular: Reports: No Symptoms Gastrointestinal: Reports: Abdominal Pain (managed with medications) Genitourinary: Reports: No Symptoms Musculoskeletal: Reports: No Symptoms - Patient Data Vital Signs - Most Recent: Last Vital Signs Temp 36.8 C 11/20/18 20:33 Pulse 115 H 11/20/18 20:33 Resp 16 11/20/18 20:33 BP 137/77 11/20/18 20:33 Pulse Ox 99 11/20/18 20:33 Weight - Most Recent: 108.125 kg I&O - Last 24 Hours: Intake & Output 11/20/18 11/20/18 11/21/18 14:59 22:59 06:59 Intake Total 120 Output Total 2000 Balance -1880 Lab Results - Last 24 Hours: Laboratory Results - last 24 hr 11/20/18 Range/Units 06:10 WBC 16.20 H (3.98-10.04) K/mm3 RBC 3.00 L (3.98-5.22) M/mm3 Hgb 8.7 L (11.2-15.7) gm/L Hct 27.8 L (34.1-44.9) % MCV 92.7 (79.4-94.8) fl MCH 29.0 (25.6-32.2) pg MCHC 31.3 L (32.2-35.5) g/dl RDW Std Deviation 46.0 (36.4-46.3) fL Plt Count 198 (182-369) K/mm3 MPV 10.5 (9.4-12.3) fl Med Orders - Current: Current Medications Diphenhydramine HCl (Benadryl) 25 mg IVPUSH Q6H PRN PRN Reason: Itching or Nausea Last Admin: 11/19/18 16:47 Dose: 25 mg Docusate Sodium (Colace) 100 mg PO Q12H PRN PRN Reason: Constipation Last Admin: 11/20/18 20:41 Dose: 100 mg Emollient Ointment (Lansinoh Hpa) 0 gm TOP ASDIRECTED PRN PRN Reason: Sore Nipples Ibuprofen (Motrin) 600 mg PO Q6H PRN PRN Reason: mild pain or fever Last Admin: 11/20/18 20:42 Dose: 600 mg Naloxone HCl (Narcan) 0.1 mg IVPUSH SEECOMMENT PRN PRN Reason: Respiratory Depression Oxycodone/Acetaminophen (Percocet 325-5 Mg) 2 tab PO Q4H PRN PRN Reason: Pain (moderate 4-6) Last Admin: 11/20/18 22:09 Dose: 2 tab Discontinued Medications Acetaminophen (Tylenol) 975 mg PO NOW STA Stop: 11/19/18 01:08 Last Admin: 11/19/18 01:10 Dose: 975 mg Cefazolin Sodium (Ancef) Confirm Administered Dose 2 gm .ROUTE .[employer] ONE Stop: 11/19/18 02:30 Citric Acid/Sodium Citrate (Bicitra Solution) Confirm Administered Dose 30 ml .[facility] Stop: 11/19/18 02:38 Last Admin: 11/19/18 02:40 Dose: 30 ml Diphenhydramine HCl (Benadryl) 25 mg IVPUSH Q6H PRN PRN Reason: pruritis Diphenhydramine HCl (Benadryl) 25 mg IVPUSH Q6H PRN PRN Reason: pruritis Ephedrine Sulfate (Ephedrine Sulfate) 5 mg IVPUSH ASDIRECTED PRN PRN Reason: Hypotension Fentanyl (Sublimaze) 100 mcg EPIDUR Q3H PRN PRN Reason: Pain Last Admin: 11/18/18 13:36 Dose: 100 mcg Fentanyl (Sublimaze) Confirm Administered Dose 100 mcg .ROUTE .[employer]-MED ONE Stop: 11/18/18 13:35 Fentanyl (Sublimaze) 50 mcg IVPUSH Q5M PRN PRN Reason: Pain Fentanyl/Bupivacaine HCl (Oiwgyfcg-Uebvx-Wn 2 Mcg/Ml-0.125%) 100 ml EP ASDIRECTED [facility] Last Admin: 11/18/18 22:08 Dose: 100 ml Lactated Ringer's (Ringers, Lactated) 1,000 mls @ 40 mls/hr IV ASDIRECTED [facility] Last Admin: 11/19/18 01:11 Dose: 40 mls/hr Oxytocin/Lactated Ringer's (Pitocin In Lr 10 Units/1,000 Ml) 10 unit in 1,000 mls @ 12 mls/hr IV TITRATE SHARMILA; Protocol Last Titration: 11/18/18 17:31 Dose: 20 munits/min, 120 mls/hr Oxytocin/Lactated Ringer's (Pitocin In Lr 10 Units/1,000 Ml) 10 unit in 1,000 mls @ 500 mls/hr IV .CONTINUOUS SHARMILA Oxytocin 20 unit/ Lactated (Ringer's) 1,002 mls @ 66.13 mls/hr IV TITRATE SHARMILA; Protocol Last Titration: 11/18/18 22:31 Dose: 22 munits/min, 66.13 mls/hr Ampicillin Sodium 2 gm/ Sodium (Chloride) 100 mls @ 200 mls/hr IV Q6H [facility] Last Admin: 11/20/18 02:31 Dose: 200 mls/hr Gentamicin Sulfate 540 mg/ (Sodium Chloride) 113.5 mls @ 200 mls/hr IV ONETIME ONE Stop: 11/19/18 01:39 Last Admin: 11/19/18 02:28 Dose: 200 mls/hr Clindamycin Phosphate 900 mg/ (Sodium Chloride) 106 mls @ 100 mls/hr IV ONETIME ONE Stop: 11/19/18 03:17 Lactated Ringer's (Ringers, Lactated) Confirm Administered Dose 2,000 mls @ as directed .ROUTE .ST-MED ONE Stop: 11/19/18 02:30 Clindamycin Phosphate 900 mg/ (Sodium Chloride) 106 mls @ 100 mls/hr IV Q8H [facility] Last Admin: 11/20/18 03:31 Dose: 100 mls/hr Dextrose/Lactated Ringer's (Dextrose 5%-Lactated Ringers) 1,000 mls @ 125 mls/ hr IV ASDIRECTED [facility] Stop: 11/19/18 12:52 Last Admin: 11/19/18 10:11 Dose: 125 mls/hr Ketorolac Tromethamine (Toradol) Confirm Administered Dose 30 mg .ROUTE .STK- MED ONE Stop: 11/19/18 02:30 Ketorolac Tromethamine (Toradol) 30 mg IVPUSH Q6H [facility] Stop: 11/19/18 22:01 Last Admin: 11/19/18 22:17 Dose: 30 mg Lidocaine/Epinephrine (Xylocaine-Mpf 2%-Epi 1:200,000) Confirm Administered Dose 20 ml .ROUTE .ST-MED ONE Stop: 11/19/18 02:31 Methylergonovine Maleate (Methergine) Confirm Administered Dose 0.2 mg .ROUTE .ST-MED ONE Stop: 11/19/18 03:28 Last Admin: 11/19/18 03:30 Dose: 0.2 mg Metoclopramide HCl (Reglan) Confirm Administered Dose 10 mg .ROUTE .[facility]-MED ONE Stop: 11/19/18 02:38 Last Admin: 11/19/18 02:40 Dose: 10 mg Misoprostol (Cytotec) 25 mcg VAG Q4H PRN PRN Reason: cervical ripening Last Admin: 11/17/18 17:50 Dose: 25 mcg Misoprostol (Cytotec) Confirm Administered Dose 25 mcg .ROUTE .[facility]-MED ONE Stop: 11/17/18 17:49 Last Admin: 11/18/18 00:59 Dose: Not Given Misoprostol (Cytotec) 25 mcg VAG Q4H PRN PRN Reason: cervical ripening Last Admin: 11/18/18 02:12 Dose: 25 mcg Morphine Sulfate (Duramorph Pf) Confirm Administered Dose 1 mg .ROUTE .ST-MED ONE Stop: 11/19/18 02:30 Nalbuphine HCl (Nubain) 10 mg IVPUSH Q2H PRN PRN Reason: pain Ondansetron HCl (Zofran) 4 mg IVPUSH Q4H PRN PRN Reason: Nausea/Vomiting Last Admin: 11/19/18 00:54 Dose: 4 mg Ondansetron HCl (Zofran) Confirm Administered Dose 4 mg .ROUTE .ST-MED ONE Stop: 11/19/18 02:30 Ondansetron HCl (Zofran) 4 mg IVPUSH ONETIME PRN PRN Reason: Nausea/Vomiting Oxytocin (Pitocin) Confirm Administered Dose 10 unit .ROUTE .ST-MED ONE Stop: 11/19/18 02:30 Oxytocin (Pitocin) Confirm Administered Dose 10 unit .ROUTE .ST-MED ONE Stop: 11/19/18 02:30 Phenylephrine HCl (Phenylephrine In Ns 100 Mcg/Ml) Confirm Administered Dose 1 mg .ROUTE .STK-MED ONE Stop: 11/19/18 03:26 Sodium Bicarbonate (Sodium Bicarbonate 8.4%) Confirm Administered Dose 50 meq .ROUTE [facility] ONE Stop: 11/19/18 02:32 Sodium Chloride (Saline Flush) 10 ml FLUSH ASDIRECTED PRN PRN Reason: Keep Vein Open - Interaction Infant Disposition, : to Nursery Feeding: Attempted ; Nursed Fair/Poor, Continues to Breastfeed Support Person: - Recovery Exam Fundal Tone: Firm Fundal Level: 1 Fingerbreadths Below Umbilicus Fundal Placement: Midline Lochia Amount: Scant, Small Lochia Color: Rubra/Red Perineum Description: Intact, Minimal Bruising/Swelling Episiotomy/Laceration: Approximated Bladder Status: Voiding Urinary Elimination: Voided Other Urinary Elimination, : Pending 1st void - Exam General: Alert, Oriented, Cooperative Lungs: Clear to Auscultation, Normal Respiratory Effort Cardiovascular: Regular Rate, Regular Rhythm GI/Abdominal Exam: Soft, Non-Tender Extremities: Normal Inspection Skin: Warm, Dry, Intact Wound/Incisions: Healing Well, No Drainage - Problem List & Annotations (1) 37 weeks gestation of SNOMED Code(s): 24473391 Code(s): Z3A.37 - 37 WEEKS GESTATION OF Status: Acute Current Visit: Yes (2) Cholestasis during in third trimester SNOMED Code(s): 011146798 Code(s): O26.613 - LIVER AND BILIARY TRACT DISORD IN , THIRD TRIMESTER; K83.1 - OBSTRUCTION OF BILE DUCT Status: Acute Current Visit: Yes (3) Chorioamnionitis SNOMED Code(s): 65286259 Code(s): O41.1290 - CHORIOAMNIONITIS, UNSP TRIMESTER, NOT APPLICABLE OR UNSP Status: Acute Current Visit: Yes Qualifiers: Fetus number: single or unspecified fetus Trimester: third trimester Qualified Code(s): O41.1230 - Chorioamnionitis, third trimester, not applicable or unspecified (4) Failure to progress in first stage of labor SNOMED Code(s): 607479048 Code(s): JTZ2292 - Status: Acute Current Visit: Yes (5) S/P primary low transverse SNOMED Code(s): 618450808, 05212396, 274792226, 822714463, 536275828 Code(s): Z98.891 - HISTORY OF UTERINE SCAR FROM PREVIOUS SURGERY Status: Acute Current Visit: Yes - Problem List Review Problem List Initiated/Reviewed/Updated: Yes - My Orders Last 24 Hours: My Active Orders 11/20/18 04:00 Ibuprofen [Motrin] 600 mg PO Q6H PRN - Assessment Assessment:: 25 t/o G1 now P1001 POD#2 from PLTCS - Plan Plan:: S/p PTLCS * Routine cares * Encourage breast feeding * Discharge in 1 day
[2018-11-21] MEDS: Ibuprofen 600 MG Tab PO PRN ×3 (04:12→22:12)
[2018-11-21] MEDS: Acetaminophen/oxyCODONE 325-5 MG Tab PO PRN ×2 (10:48→18:40)
[2018-11-21] MEDS: Docusate Sodium 100 MG Cap PO PRN (14:23)
[2018-11-21] MEDS ORDERED: Polyethylene Glycol 3350 Powder 238 GM Bot PO SCH (15:53)
[2018-11-21] MEDS ORDERED: Polyethylene Glycol 3350 Powder 17 GM Packet PO PRN (16:41)
[2018-11-22] MEDS: Acetaminophen/oxyCODONE 325-5 MG Tab PO PRN ×3 (00:06→08:41)
--- NOTE | 2018-11-22 08:45 | PCM.DCSUM1 ---
Discharge Summary - Discharge Data Discharge Date: 11/22/18 Discharge Disposition: Home, Self-Care 01 Condition: Good - Discharge Diagnosis/Problem(s) (1) 37 weeks gestation of SNOMED Code(s): 90084039 ICD Code: Z3A.37 - 37 WEEKS GESTATION OF Status: Acute Current Visit: Yes (2) Cholestasis during in third trimester SNOMED Code(s): 860167916 ICD Code: O26.613 - LIVER AND BILIARY TRACT DISORD IN , THIRD TRIMESTER; K83.1 - OBSTRUCTION OF BILE DUCT Status: Acute Current Visit: Yes (3) Chorioamnionitis SNOMED Code(s): 64270457 ICD Code: O41.1290 - CHORIOAMNIONITIS, UNSP TRIMESTER, NOT APPLICABLE OR UNSP Status: Acute Current Visit: Yes Qualifiers: Fetus number: single or unspecified fetus Trimester: third trimester Qualified Code(s): O41.1230 - Chorioamnionitis, third trimester, not applicable or unspecified (4) Failure to progress in first stage of labor SNOMED Code(s): 257633219 ICD Code: RPE9800 - Status: Acute Current Visit: Yes (5) S/P primary low transverse SNOMED Code(s): 811651719, 33834984, 647495885, 991282105, [id number] ICD Code: Z98.891 - HISTORY OF UTERINE SCAR FROM PREVIOUS SURGERY Status: Acute Current Visit: Yes - Patient Summary/Data Operative Procedure(s) Performed: Primary low transverse Complications: None Consults: None Recommended Follow-up Testing/Procedures: follow up in 1-2 weeks for incision check Hospital Course: 23 y/o admitted at 37 0/7 wks for IOL due to cholestasis of . Induction was begun with oconnor bulb and cytotec. Patient with early SROM in this process when only 1 cm. Unfortunately did develop tachycardia and rising temperature concerning for chorioamnionitis. Treatment begun for such prior to actual diagnosis of a fever as seemed clinically correct. Patient was only about 7 or cm at this time and eventually did have some intermittent bouts of inappropriate FHR tracing. Due to this combination she desired which was not felt to be unreasonable. Surgery uncomplicated. See delivery note. Post op she was maintained on antibiotics for 24 hours. She did well and was discharged on POD#3 - Patient Instructions Diet: Regular Diet as Tolerated Activity: No Lifting Over 10 Pounds Activity, Other: Pelvic Rest for 6 weeks Driving: Do Not Drive (While taking narcotics ) Showering/Bathing: May Shower, No Tub Bathing/Swimming Wound/Incision Care: Keep Operative Site/Wound Site Clean and Dry Notify Provider of: Fever, Increased Pain, Swelling and Redness, Drainage, Nausea and/or Vomiting - Discharge Plan *PRESCRIPTION DRUG MONITORING PROGRAM REVIEWED*: Yes *COPY OF PRESCRIPTION DRUG MONITORING REPORT IN PATIENT DEVANTE: No Prescriptions/Med Rec: Acetaminophen/oxyCODONE [Percocet 325-5 MG] 2 tab PO Q4H PRN #25 tablet PRN Reason: Pain (Moderate 4-6) Home Medications: Home Meds Pnv No.122/Iron/Folic Acid [ Multi Tablet] 1 tab PO DAILY 11/13/18 [ History] Acetaminophen/oxyCODONE [Percocet 325-5 MG] 2 tab PO Q4H PRN #25 tablet [Rx] Docusate Sodium [Colace] 100 mg PO Q12H PRN cap 11/21/18 [Rx] Ibuprofen [Motrin] 600 mg PO Q6H PRN tablet 11/21/18 [Rx] Polyethylene Glycol 3350 [MiraLAX] 17 gm PO DAILY PRN packet 11/21/18 [Rx] Patient Handouts: Care After Delivery, Tips for a Good Latch Referrals: Jyoti Sifuentes MD [Primary Care Provider] - (1-2 weeks for incision check ) - Discharge Summary/Plan Comment DC Time >30 min.: No - Patient Data Vitals - Most Recent: Last Vital Signs Temp 37.2 C 11/22/18 03:10 Pulse 111 H 11/22/18 03:10 Resp 17 11/22/18 03:10 BP 125/72 11/22/18 03:10 Pulse Ox 98 11/22/18 03:10 Weight - Most Recent: 108.125 kg I&O - Last 24 hours: Intake & Output 11/21/18 11/22/18 11/22/18 22:59 06:59 14:59 Intake Total 0 Balance 0 Med Orders - Current: Current Medications Diphenhydramine HCl (Benadryl) 25 mg IVPUSH Q6H PRN PRN Reason: Itching or Nausea Last Admin: 11/19/18 16:47 Dose: 25 mg Docusate Sodium (Colace) 100 mg PO Q12H PRN PRN Reason: Constipation Last Admin: 11/21/18 14:23 Dose: 100 mg Emollient Ointment (Lansinoh Hpa) 0 gm TOP ASDIRECTED PRN PRN Reason: Sore Nipples Ibuprofen (Motrin) 600 mg PO Q6H PRN PRN Reason: mild pain or fever Last Admin: 11/21/18 22:12 Dose: 600 mg Naloxone HCl (Narcan) 0.1 mg IVPUSH SEECOMMENT PRN PRN Reason: Respiratory Depression Oxycodone/Acetaminophen (Percocet 325-5 Mg) 2 tab PO Q4H PRN PRN Reason: Pain (moderate 4-6) Last Admin: 11/22/18 08:41 Dose: 2 tab Polyethylene Glycol (Miralax) 17 gm PO DAILY PRN PRN Reason: Constipation Last Admin: 11/21/18 16:48 Dose: 17 gm Discontinued Medications Acetaminophen (Tylenol) 975 mg PO NOW STA Stop: 11/19/18 01:08 Last Admin: 11/19/18 01:10 Dose: 975 mg Cefazolin Sodium (Ancef) Confirm Administered Dose 2 gm .ROUTE .STK-MED ONE Stop: 11/19/18 02:30 Citric Acid/Sodium Citrate (Bicitra Solution) Confirm Administered Dose 30 ml .ROUTE .STK-MED ONE Stop: 11/19/18 02:38 Last Admin: 11/19/18 02:40 Dose: 30 ml Diphenhydramine HCl (Benadryl) 25 mg IVPUSH Q6H PRN PRN Reason: pruritis Diphenhydramine HCl (Benadryl) 25 mg IVPUSH Q6H PRN PRN Reason: pruritis Ephedrine Sulfate (Ephedrine Sulfate) 5 mg IVPUSH ASDIRECTED PRN PRN Reason: Hypotension Fentanyl (Sublimaze) 100 mcg EPIDUR Q3H PRN PRN Reason: Pain Last Admin: 11/18/18 13:36 Dose: 100 mcg Fentanyl (Sublimaze) Confirm Administered Dose 100 mcg .ROUTE .STK-MED ONE Stop: 11/18/18 13:35 Fentanyl (Sublimaze) 50 mcg IVPUSH Q5M PRN PRN Reason: Pain Fentanyl/Bupivacaine HCl (Uyfikoes-Xnbbn-Rm 2 Mcg/Ml-0.125%) 100 ml EP ASDIRECTED SHARMILA Last Admin: 11/18/18 22:08 Dose: 100 ml Lactated Ringer's (Ringers, Lactated) 1,000 mls @ 40 mls/hr IV ASDIRECTED SHARMILA Last Admin: 11/19/18 01:11 Dose: 40 mls/hr Oxytocin/Lactated Ringer's (Pitocin In Lr 10 Units/1,000 Ml) 10 unit in 1,000 mls @ 12 mls/hr IV TITRATE SHARMILA; Protocol Last Titration: 11/18/18 17:31 Dose: 20 munits/min, 120 mls/hr Oxytocin/Lactated Ringer's (Pitocin In Lr 10 Units/1,000 Ml) 10 unit in 1,000 mls @ 500 mls/hr IV .CONTINUOUS SHARMILA Oxytocin 20 unit/ Lactated (Ringer's) 1,002 mls @ 66.13 mls/hr IV TITRATE SHARMILA; Protocol Last Titration: 11/18/18 22:31 Dose: 22 munits/min, 66.13 mls/hr Ampicillin Sodium 2 gm/ Sodium (Chloride) 100 mls @ 200 mls/hr IV Q6H [facility] Last Admin: 11/20/18 02:31 Dose: 200 mls/hr Gentamicin Sulfate 540 mg/ (Sodium Chloride) 113.5 mls @ 200 mls/hr IV ONETIME ONE Stop: 11/19/18 01:39 Last Admin: 11/19/18 02:28 Dose: 200 mls/hr Clindamycin Phosphate 900 mg/ (Sodium Chloride) 106 mls @ 100 mls/hr IV ONETIME ONE Stop: 11/19/18 03:17 Lactated Ringer's (Ringers, Lactated) Confirm Administered Dose 2,000 mls @ as directed .ROUTE .STK-MED ONE Stop: 11/19/18 02:30 Clindamycin Phosphate 900 mg/ (Sodium Chloride) 106 mls @ 100 mls/hr IV Q8H [facility] Last Admin: 11/20/18 03:31 Dose: 100 mls/hr Dextrose/Lactated Ringer's (Dextrose 5%-Lactated Ringers) 1,000 mls @ 125 mls/ hr IV ASDIRECTED [facility] Stop: 11/19/18 12:52 Last Admin: 11/19/18 10:11 Dose: 125 mls/hr Ketorolac Tromethamine (Toradol) Confirm Administered Dose 30 mg .ROUTE .STK- MED ONE Stop: 11/19/18 02:30 Ketorolac Tromethamine (Toradol) 30 mg IVPUSH Q6H [facility] Stop: 11/19/18 22:01 Last Admin: 11/19/18 22:17 Dose: 30 mg Lidocaine/Epinephrine (Xylocaine-Mpf 2%-Epi 1:200,000) Confirm Administered Dose 20 ml .ROUTE .STK-MED ONE Stop: 11/19/18 02:31 Methylergonovine Maleate (Methergine) Confirm Administered Dose 0.2 mg .ROUTE .STK-MED ONE Stop: 11/19/18 03:28 Last Admin: 11/19/18 03:30 Dose: 0.2 mg Metoclopramide HCl (Reglan) Confirm Administered Dose 10 mg .ROUTE .STK-MED ONE Stop: 11/19/18 02:38 Last Admin: 11/19/18 02:40 Dose: 10 mg Misoprostol (Cytotec) 25 mcg VAG Q4H PRN PRN Reason: cervical ripening Last Admin: 11/17/18 17:50 Dose: 25 mcg Misoprostol (Cytotec) Confirm Administered Dose 25 mcg .ROUTE .STK-MED ONE Stop: 11/17/18 17:49 Last Admin: 11/18/18 00:59 Dose: Not Given Misoprostol (Cytotec) 25 mcg VAG Q4H PRN PRN Reason: cervical ripening Last Admin: 11/18/18 02:12 Dose: 25 mcg Morphine Sulfate (Duramorph Pf) Confirm Administered Dose 1 mg .ROUTE .STK-MED ONE Stop: 11/19/18 02:30 Nalbuphine HCl (Nubain) 10 mg IVPUSH Q2H PRN PRN Reason: pain Ondansetron HCl (Zofran) 4 mg IVPUSH Q4H PRN PRN Reason: Nausea/Vomiting Last Admin: 11/19/18 00:54 Dose: 4 mg Ondansetron HCl (Zofran) Confirm Administered Dose 4 mg .ROUTE .STK-MED ONE Stop: 11/19/18 02:30 Ondansetron HCl (Zofran) 4 mg IVPUSH ONETIME PRN PRN Reason: Nausea/Vomiting Oxytocin (Pitocin) Confirm Administered Dose 10 unit .ROUTE .STK-MED ONE Stop: 11/19/18 02:30 Oxytocin (Pitocin) Confirm Administered Dose 10 unit .ROUTE .STK-MED ONE Stop: 11/19/18 02:30 Phenylephrine HCl (Phenylephrine In Ns 100 Mcg/Ml) Confirm Administered Dose 1 mg .ROUTE .STK-MED ONE Stop: 11/19/18 03:26 Polyethylene Glycol (Miralax) 17 gm PO DAILY SHARMILA Sodium Bicarbonate (Sodium Bicarbonate 8.4%) Confirm Administered Dose 50 meq .ROUTE .STK-MED ONE Stop: 11/19/18 02:32 Sodium Chloride (Saline Flush) 10 ml FLUSH ASDIRECTED PRN PRN Reason: Keep Vein Open
== END 2018-11-22 11:50 | disposition home or self-care (01) | DRG 786 ==
LOC: JD.OBCHECK 16:57 → JD.OB 16:58 → JD.OBCHECK 17:24 → JD.OB 17:25 → OBSVTOIN 11-19 03:12 → JD.OB 11-19 03:13
PROVIDERS: ADMIT Obstetrics & Gynecology; ATTEND Obstetrics & Gynecology
PROC: 3E0P7VZ Introduction of Hormone into Female Reproductive, Via Natural or Artificial Opening (ICD-10-PCS; 2018-11-18)
PROC: 3E033VJ Introduction of Other Hormone into Peripheral Vein, Percutaneous Approach (ICD-10-PCS; 2018-11-18)
PROC: 00HU33Z Insertion of Infusion Device into Spinal Canal, Percutaneous Approach (ICD-10-PCS; 2018-11-18)
PROC: 3E0R3BZ Introduction of Anesthetic Agent into Spinal Canal, Percutaneous Approach (ICD-10-PCS; 2018-11-18)
PROC: 10D00Z1 Extraction of Products of Conception, Low, Open Approach (ICD-10-PCS; principal; 2018-11-19)
DX: O26.62 Liver and biliary tract disorders in childbirth (principal); K83.1 Obstruction of bile duct; O41.1230 Chorioamnionitis, third trimester, not applicable or unspecified; O76 Abnormality in fetal heart rate and rhythm complicating labor and delivery; O62.0 Primary inadequate contractions; O42.02 Full-term premature rupture of membranes, onset of labor within 24 hours of rupture; Z3A.37 37 weeks gestation of pregnancy; Z37.0 Single live birth
CPT/HCPCS: 01961; 36415; 51702; 59025; 80053; 85027; 86592; 86850; 86900; 86901; 94762; A9270-GY; J0290; J0690; J1200; J1580; J1885; J2210; J2274; J2370; J2405; J2590; J2765; J3010; J3490; J7030; J7042; J7120